=== PATIENT | female | born 1995 | race Caucasian/White ===

== ENCOUNTER 2016-03-28 22:21 | Emergency (ER) | payer SELFPAY ==
[~2016-03-28] VITALS: Ht 162.6 cm; Wt 90.9 kg
[2016-03-28 22:56] LABS: BASOPHILS % (AUTO) 0.5 % (0.0-2.0); EOSINOPHILS % (AUTO) 7.5 % (1.0-6.0); HEMATOCRIT 45.9 % (36-46); HEMOGLOBIN 15.1 g/dL (12.0-16.0); LYMPHOCYTES # (AUTO) 4.6 K/uL (1.0-4.8); LYMPHOCYTES % (AUTO) 32.6 % (22.0-44.0); MEAN CORPUSCULAR HEMOGLOBIN 26.6 pg (26.0-34.0); MEAN CORPUSCULAR VOLUME 81 fL (80-100); MONOCYTES # (AUTO) 1.2 K/uL (0.1-1.0); MONOCYTES % (AUTO) 8.5 % (2.0-9.0); NEUTROPHILS # (AUTO) 7.1 K/uL (1.8-7.7); NEUTROPHILS % (AUTO) 50.9 % (40.0-70.0); PLATELET COUNT (AUTO) 208 K/uL (150-450); RED CELL DISTRIBUTION WIDTH 14.2 % (11.5-14.5)
[2016-03-28 23:03] LABS: ANION GAP 8 mmol/L (8-16); CALCIUM, TOTAL 9.1 mg/dL (8.8-10.5); CARBON DIOXIDE 29 mmol/L (22-29); CHLORIDE 100 mmol/L (98-107); CREATININE 0.94 mg/dL (0.60-1.30); GLOMERULAR FILTR. RATE CALC > 60 mL/min (>60); POTASSIUM 3.9 mmol/L (3.5-5.1); SODIUM SERUM 137 mmol/L (136-145); UREA NITROGEN, BLOOD 13 mg/dL (7-18)
[2016-03-28 23:11] LABS: ALANINE AMINOTRANSFERASE 39 U/L (12-78); ALBUMIN 3.7 g/dL (3.4-5.0); AMYLASE 43 U/L (25-115); ASPARTATE AMINOTRANSFERASE 21 U/L (15-37); BILIRUBIN,TOTAL 0.1 mg/dL (0.1-1.0); TOTAL PROTEIN, SERUM 8.4 g/dL (6.4-8.2)
[2016-03-29] LABS: GLUCOSE, URINE (UA) NEGATIVE (NEGATIVE); KETONES,URINE NEGATIVE (NEGATIVE); LEUKOCYTE ESTERASE ,URINE SMALL (NEGATIVE); OCCULT BLOOD,URINE SMALL (NEGATIVE); PROTEIN,URINE NEGATIVE (NEGATIVE)
[2016-03-29 00:04] LABS: ADD UA MICROSCOPIC YES
[2016-03-29 00:05] LABS: APPEARANCE,URINE SLIGHTLY CLOUDY (CLEAR)
[2016-03-29 00:22] LABS: SQUAMOUS EPITHELIAL CELL,UR Moderate /LPF (None Seen)
[2016-03-29 02:49] VITALS: BP 119/76
== END 2016-03-29 03:38 | disposition home or self-care (01) ==
LOC: EMS 22:23
DX: R10.31 Right lower quadrant pain (principal); F17.210 Nicotine dependence, cigarettes, uncomplicated; Z88.0 Allergy status to penicillin
CPT/HCPCS: 74176; 87086; 99285; 99406

== ENCOUNTER → 2021-03-19 | Outpatient (CLI) | payer OTHER ==
[2021-03-20 04:06] LABS: RUBELLA AB IGG-REFLAB 1.96 index (Immune >0.99)
[2021-03-20 09:07] LABS: RUBEOLA (MEASLES) IGG >300.0 AU/mL (Immune >16.4)
== END | disposition home or self-care (01) ==
LOC: LABMN 14:40
PROVIDERS: ATTEND Internal Medicine
DX: Z02.1 Encounter for pre-employment examination (principal)
CPT/HCPCS: 86706; 86735; 86762; 86765; 86787

== ENCOUNTER 2021-05-17 20:27 | Emergency (ER) | payer OTHER ==
[~2021-05-17] VITALS: Ht 162.6 cm; Wt 100.0 kg
[2021-05-17 20:49] VITALS: BP 134/75
[2021-05-17] MEDS ORDERED: IBUPROFEN 600 MG TABLET PO ONE (21:15)
[2021-05-17] MEDS ORDERED: IBUP-1554 PO (22:05)
== END 2021-05-17 22:13 | disposition home or self-care (01) ==
LOC: EMS 20:37
DX: S29.011A Strain of muscle and tendon of front wall of thorax, initial encounter (principal); M25.512 Pain in left shoulder; F17.210 Nicotine dependence, cigarettes, uncomplicated; Z88.0 Allergy status to penicillin; X50.0XXA Overexertion from strenuous movement or load, initial encounter; Y93.89 Activity, other specified; Y92.89 Other specified places as the place of occurrence of the external cause; Y99.8 Other external cause status
CPT/HCPCS: 99283

== ENCOUNTER 2021-06-24 15:43 | Emergency (ER) | payer SELFPAY ==
[~2021-06-24] VITALS: Ht 162.6 cm; Wt 90.9 kg
[~2021-06-24 15:43] MED LIST: IBUP-1554 PO
[2021-06-24] MEDS: MECLIZINE HCL 25 MG TABLET PO ONE (16:49)
[2021-06-24 17:28] VITALS: BP 115/65
[2021-06-24] MEDS ORDERED: MECL-134 PO (17:45)
== END 2021-06-24 17:57 | disposition home or self-care (01) ==
LOC: EMS 15:55
DX: H81.10 Benign paroxysmal vertigo, unspecified ear (principal); J45.909 Unspecified asthma, uncomplicated; Z88.0 Allergy status to penicillin
CPT/HCPCS: 93005; 99283

== ENCOUNTER → 2022-11-04 | Outpatient (CLI) | payer OTHER ==
[~2022-11-04] MED LIST changes: +MECL-134 PO
[2022-11-05 04:06] LABS: RUBELLA AB IGG-REFLAB 1.92 index (Immune >0.99); RUBEOLA (MEASLES) IGG >300.0 AU/mL (Immune >16.4); VARICELLA ZOSTER IGG AB TITER 1237 index (Immune >165)
[2022-11-05 05:08] LABS: MUMPS VIRUS IGG ANTIBODY 45.2 AU/mL (Immune >10.9)
== END | disposition home or self-care (01) ==
LOC: LABMN 08:53
PROVIDERS: ATTEND Internal Medicine
DX: Z02.1 Encounter for pre-employment examination (principal)
CPT/HCPCS: 86706; 86735; 86762; 86765; 86787

== ENCOUNTER 2024-02-24 10:14 | Emergency (ER) | payer OTHER ==
[~2024-02-24] VITALS: Ht 162.6 cm; Wt 94.5 kg
[2024-02-24 10:25] VITALS: TEMP 98.5
[2024-02-24] MEDS: KETOROLAC TROMETHAMINE 30 MG/ML VIAL IM ONE (10:57)
[2024-02-24] MEDS: ACETAMINOPHEN 325 MG TABLET PO ONE (10:57)
[2024-02-24] MEDS: METHOCARBAMOL 500 MG TABLET PO ONE (10:57)
[2024-02-24] MEDS: LIDOCAINE 5% TRANSDERMAL PATCH TD ONE (10:57)
[2024-02-24] MEDS ORDERED: METH-812 PO (11:44)
[2024-02-24 11:45] VITALS: BP 135/78; PULSE 75; RESP 18; O2SAT 99
== END 2024-02-24 11:53 | disposition home or self-care (01) ==
LOC: EMS 10:14
DX: S29.012A Strain of muscle and tendon of back wall of thorax, initial encounter (principal); M54.2 Cervicalgia; J45.909 Unspecified asthma, uncomplicated; Z88.0 Allergy status to penicillin; X58.XXXA Exposure to other specified factors, initial encounter; Y93.89 Activity, other specified; Y92.89 Other specified places as the place of occurrence of the external cause; Y99.0 Civilian activity done for income or pay
CPT/HCPCS: 99284; 96372; J1885

== ENCOUNTER 2024-09-17 14:35 | Emergency (ER) | payer OTHER ==
[~2024-09-17] VITALS: Ht 162.6 cm; Wt 102.0 kg
[~2024-09-17 14:35] MED LIST changes: -IBUP-1554 PO; -MECL-134 PO; +METH-812 PO
[2024-09-17 14:41] VITALS: TEMP 98.1
[2024-09-17 15:15] VITALS: BP 123/65; PULSE 81; RESP 17; O2SAT 98
[2024-09-17] MEDS: IBUPROFEN 400 MG TABLET PO ONE (15:20)
[2024-09-17] MEDS: CEFDINIR 300 MG CAPSULE PO ONE (15:20)
[2024-09-17] MEDS ORDERED: CEFD300C18 PO (15:33)
== END 2024-09-17 15:44 | disposition home or self-care (01) ==
LOC: EMS 14:35
DX: H66.92 Otitis media, unspecified, left ear (principal); J45.909 Unspecified asthma, uncomplicated; Z88.0 Allergy status to penicillin; Z79.899 Other long term (current) drug therapy
CPT/HCPCS: 99283

== ENCOUNTER 2024-12-04 08:09 | Emergency (ER) | payer OTHER ==
[~2024-12-04] VITALS: Ht 162.6 cm; Wt 100.0 kg
[~2024-12-04 08:09] MED LIST changes: +CEFD300C18 PO
[2024-12-04 08:13] VITALS: TEMP 98
[2024-12-04] MEDS ORDERED: IBUP-1492 PO (10:04)
[2024-12-04 11:05] VITALS: BP 129/73; PULSE 78; RESP 16; O2SAT 99
== END 2024-12-04 11:28 | disposition home or self-care (01) ==
LOC: EMS 08:09
DX: S93.401A Sprain of unspecified ligament of right ankle, initial encounter (principal); J45.909 Unspecified asthma, uncomplicated; Z88.0 Allergy status to penicillin; Z79.899 Other long term (current) drug therapy; X50.1XXA Overexertion from prolonged static or awkward postures, initial encounter; Y93.89 Activity, other specified; Y92.89 Other specified places as the place of occurrence of the external cause; Y99.8 Other external cause status
CPT/HCPCS: 99283

== ENCOUNTER 2024-12-11 06:56 | Emergency (ER) | payer OTHER ==
[~2024-12-11] VITALS: Ht 167.6 cm; Wt 100.0 kg
[~2024-12-11 06:56] MED LIST changes: +IBUP-1492 PO
[2024-12-11 07:24] VITALS: BP 118/75; PULSE 64; RESP 16; TEMP 97.7; O2SAT 100
== END 2024-12-11 07:42 | disposition home or self-care (01) ==
LOC: EMS 06:56
DX: S99.911A Unspecified injury of right ankle, initial encounter (principal); J45.909 Unspecified asthma, uncomplicated; Z79.899 Other long term (current) drug therapy; Z88.0 Allergy status to penicillin; X58.XXXA Exposure to other specified factors, initial encounter; Y93.89 Activity, other specified; Y92.89 Other specified places as the place of occurrence of the external cause; Y99.0 Civilian activity done for income or pay
CPT/HCPCS: 99282; Z7502